=== PATIENT | female | born 2000 | race African-American/Black ===

== ENCOUNTER 2024-04-24 17:48 | Emergency (ER) | payer OTHER ==
[~2024-04-24] VITALS: Ht 172.7 cm; Wt 60.0 kg
[2024-04-24 17:50] VITALS: O2SAT 100
[2024-04-24 21:49] LABS: BASOPHILS % 0.4 % (0.0-2.0); EOSINOPHILS % 0.7 % (0.0-5.0); HEMATOCRIT. 40.5 % (36.0-48.0); HEMOGLOBIN. 13.5 g/dL (12.0-16.0); LYMPHOCYTES % 18.8 % (20.0-50.0); MEAN CORPUSCULAR HEMOGLOBIN 30.8 pg (28.0-32.0); MEAN CORPUSCULAR HGB CONC 33.4 g/dL (31.0-37.0); MEAN CORPUSCULAR VOLUME 92.3 fL (81.0-99.0); MONOCYTES % 9.5 % (2.0-8.0); NEUTROPHILS % 70.6 % (40.0-76.0); RED BLOOD CELL COUNT 4.38 mill/uL (4.2-5.4); RED CELL DISTRIBUTION WIDTH 13.9 % (11.6-14.6); WHITE BLOOD COUNT 8.8 x1000/uL (4.5-11.0)
[2024-04-24 21:55] LABS: DIFFERENTIAL COMMENT 1
[2024-04-24 21:56] LABS: CHLORIDE 107 mEq/L (98-107); POTASSIUM 3.8 mEq/L (3.5-5.1); SODIUM 141 mEq/L (136-145)
[2024-04-24 21:57] LABS: CARBON DIOXIDE 28 mEq/L (21-32)
[2024-04-24 21:58] LABS: CALCIUM 9.7 mg/dL (8.7-10.4)
[2024-04-24 22:02] LABS: CREATININE 1.1 mg/dL (0.6-1.0); GLUCOSE 89 mg/dL (70-105); HCG SCREEN NEGATIVE; UREA NITROGEN BLOOD 8 mg/dL (9-23)
[2024-04-24 22:04] LABS: ACETAMINOPHEN < 2 ug/mL (10-30)
[2024-04-24 22:12] LABS: ETHANOL BLOOD < 10 mg/dL (<10)
[2024-04-24 22:35] LABS: MEAN PLATELET VOLUME 8.5 fl (7.4-10.4); PLATELET 236 x1000/uL (130-400)
[2024-04-24 22:59] VITALS: BP 123/75; PULSE 88; RESP 17; TEMP 36.78072; O2SAT 100
== END 2024-04-24 23:16 | disposition home or self-care (01) ==
LOC: ER 17:48
DX: S80.812A Abrasion, left lower leg, initial encounter (principal); G31.89 Other specified degenerative diseases of nervous system; W18.39XA Other fall on same level, initial encounter; Y93.89 Activity, other specified; Y92.89 Other specified places as the place of occurrence of the external cause; Y99.8 Other external cause status
CPT/HCPCS: 36415; 73560; 80048; 80307; 80320; 80329; 84703; 85025; 99284; G0480